=== PATIENT | female | born 1945 | race Caucasian/White ===

== ENCOUNTER → 2017-10-21 01:08 | Outpatient (CLI) | payer MEDICARE, BC, SELFPAY ==
--- NOTE | 2017-10-21 09:50 | DI.REPORT_ITS ---
SYMPTOM/DIAGNOSIS: DYSPNEA ON EXERTION, R06.09 PA AND LATERAL CHEST: The lungs are well expanded and free of infiltrate. There is no pleural effusion. The cardiovascular structures are intact. 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 SUMMARY: Negative chest xray.
== END ==
PROVIDERS: PCP Nurse Practitioner; Visit Provider Nurse Practitioner
DX: R06.09 Other forms of dyspnea (principal)
CPT/HCPCS: 71046

== ENCOUNTER 2018-09-20 00:25 | Outpatient (CLI) | payer MEDICARE, BC, SELFPAY ==
--- NOTE | 2018-09-20 15:00 | DI.RAD_ITS ---
SYMPTOMS/DIAGNOSIS: SCREENING, Z12.31 MAMMOGRAM: Mammograms were interpreted according to the usual protocol including computer analysis with CAD system, tomosynthesis and C view imaging. The breasts are heterogeneously dense. No dominant mass or clumped microcalcification is seen. There is a stable area of nodularity in the medial inferior portion of the left breast seen on multiple previous examinations including April 2017. No significant change seen in comparison with prior studies. CONCLUSION: No specific evidence of malignancy at this time. Routine screening examinations are suggested at yearly intervals due to the family history of breast carcinoma. Category 1, breast density category C. MQSA ASSESSMENT OF FINDINGS: Negative. Category 1. Patient will receive a letter notifying them of these results. Bi-RADS category C. The breasts are heterogeneously dense, which may obscure small masses.
== END 2018-09-20 00:45 ==
PROVIDERS: PCP Nurse Practitioner; Visit Provider Nurse Practitioner Family
DX: Z12.31 Encounter for screening mammogram for malignant neoplasm of breast (principal); Z80.3 Family history of malignant neoplasm of breast
CPT/HCPCS: 77063; 77067

== ENCOUNTER 2019-06-01 07:41 | Outpatient (CLI) | payer MEDICARE, BC, SELFPAY ==
[2019-06-01 08:20] LABS: HCT 42.2 % (36.0-46.0); HGB 13.9 g/dL (12.0-15.5); Mean Corp. HGB Concentration 32.9 g/dL (32.0-36.0); Mean Corpuscular Hemoglobin 29.8 pg (27.0-33.0); Mean Corpuscular Volume 90.6 fL (80-95); Mean Platelet Volume 11.2 fL (8.0-11.0); Platelet Count 285 x1000/uL (130-400); RBC 4.66 m/cumm (4.00-5.20); RBC Distribution Width 13.7 % (11.7-14.6); White Blood Cell Count 7.13 k/cumm (4.4-10.8)
[2019-06-01 09:26] LABS: ALT 27 U/L (14-59); AST 17 U/L (15-37); Albumin 3.8 g/dL (3.4-5.0); Alkaline Phosphatase 77 U/L (46-116); Anion Gap 6.3 mmol/L (3-11); BUN 22 mg/dL (7-18); Bilirubin, Total 0.6 mg/dL (0.2-1.0); CO2 29.7 mmol/L (21.0-32.0); CREATININE 0.87 mg/dL (0.55-1.02); Calcium 8.9 mg/dL (8.5-10.1); Calculated LDL 139 mg/dL (<100); Chloride 106 mmol/L (98-107); Cholesterol 240 mg/dL (<200); Glucose 101 mg/dL (74-106); HDL Cholesterol 91 mg/dL (40-60); Potassium 4.5 mmol/L (3.5-5.1); Sodium 142 mmol/L (136-145); Total Protein 6.6 g/dL (6.4-8.2); Triglyceride 53 mg/dL (<150)
[2019-06-01 10:29] LABS: ESR 8 mm/hr (0-30)
[2019-06-01 15:56] LABS: Rheumatoid Factor <8.6 IU/mL (<12.0)
== END 2019-06-01 08:01 ==
PROVIDERS: PCP Nurse Practitioner; Visit Provider Nurse Practitioner
DX: E78.00 Pure hypercholesterolemia, unspecified (principal); M79.641 Pain in right hand; M79.642 Pain in left hand
CPT/HCPCS: 36415; 80053; 80061; 85027; 85652; 86431

== ENCOUNTER 2019-11-30 01:56 | Outpatient (CLI) | payer MEDICARE, BC, SELFPAY ==
--- NOTE | 2019-11-30 15:00 | DI.MAMMO_ITS ---
EXAM: MG MAMMO SCREENING CLINICAL HISTORY: screening TECHNIQUE: Mammograms were interpreted according to the usual protocol including computer analysis w [employer] CAD system, tomosynthesis and C-view imaging. COMPARISON: FINDINGS: The breasts are heterogeneously dense. No dominant mass or clumped microcalcification is identified in either breast. There is stable intramammary well circumscribed nodule seen in the central medial portion of the left breast measuring about 11 millimeters in greatest diameter. A 10 millimeter in g reatest diameter nodule is projected in the central lateral portion of the left breast on CC view and has increased in size in comparison with previous studies including September 2018. No other significant change seen in comparison with previous examinations. Because of the interval i ncrease in size of the more laterally located left breast nodule, additional evaluation with spot com pression views and breast ultrasound is recommended. IMPRESSION: Additional mammographic views of the left breast and left breast ultrasound requested as described ab mireles. BI-RADS Cat 0 - Assessment Incomplete: Need additional imaging evaluation Breast Density - Category C - Heterogeneously dense
== END 2019-11-30 02:16 ==
PROVIDERS: PCP Internal Medicine; Visit Provider Nurse Practitioner Family
DX: Z12.31 Encounter for screening mammogram for malignant neoplasm of breast (principal); N63.20 Unspecified lump in the left breast, unspecified quadrant
CPT/HCPCS: 77063; 77067

== ENCOUNTER 2019-12-07 01:14 | Outpatient (CLI) | payer MEDICARE, BC, SELFPAY ==
--- NOTE | 2019-12-07 | DI.US_ITS ---
EXAM: MG MAMMO SCREEN CALL BACK UNI and U/S breast LT limited CLINICAL HISTORY: F/U MAMMO, CENTRAL LAT LT BREAST NODULE INCREASED. TECHNIQUE: Craniocaudal and mediolateral oblique Full Field Digital Mammography views of the left br east with Computer Aided Diagnosis followed by Tomosynthesis and left breast ultrasound. COMPARISON: Priors available for comparison. FINDINGS: Mammography/Tomosynthesis: Masses/Architectural Distortion: A small persistent ovoid density is seen in the outer left breast on the additional views. No associated suspicious microcalcifications are noted. Microcalcifictions: No suspicious pleomorphic-type are seen. Skin Thickening/Nipple Retraction: None. Left breast US: Echotexture: Normal appearance of the glandular tissue. Shadowing: No suspicious foci. Cyst: None. Solid lesions: 2 well-circumscribed ovoid hypoechoic avascular nodules are seen at the 3 o'clock posi tion of the left breast 2 cm from the nipple. No posterior acoustic enhancement or shadowing is seen . The larger measures 0.6 cm. Ductal dilation: None. IMPRESSION: 1. No definite evidence for malignancy at this time. 2. A six-month follow-up left mammogram and left breast ultrasound are requested for re-evaluation. 3. The findings were discussed with the patient on the date of the examination. BI-RADS Category 3 - 6 month - Probably Benign Finding: Recommend follow-up mammography in 6 months Breast Density - Category C - Heterogeneously dense The mammogram demonstrates the patient's breast tissue is dense. Dense breast tissue is very common a nd is not abnormal but dense breast tissue can make it harder to find cancer on a mammogram. Also, de nse breast tissue may increase their breast cancer risk. This information about the result of the [facility] mogram report was provided to the patient to raise their awareness. Use this report when you speak wi th the patient about their risks for breast cancer, which includes their family history. At that time , you may recommend for more screening tests (Ultrasound or MRI) as they might be useful based on the ir risk. A negative radiographic report should not delay biopsy if a dominant or clinically suspicious mass is present. Up to ten percent of cancers are not identified on mammography. A negative report may reinforce clinical impression. Adenosis and dense breasts may obscure an underlying neoplasm. False positive reports average 6 to 10%. Patient will receive a letter notifying them of these results.
== END 2019-12-07 01:34 ==
PROVIDERS: PCP Internal Medicine; Visit Provider Nurse Practitioner Family
DX: R92.8 Other abnormal and inconclusive findings on diagnostic imaging of breast (principal); R92.2 Inconclusive mammogram
CPT/HCPCS: 76642; 77063; 77067

== ENCOUNTER 2020-06-11 02:42 | Outpatient (CLI) | payer MEDICARE, BC, SELFPAY ==
--- NOTE | 2020-06-11 07:45 | DI.MAMMO_ITS ---
EXAM: MG MAMMO DIAGNOSTIC UNI CLINICAL HISTORY: 6 mo f/u left breast mammogram,R92.8,INCONCLUSIVE MAMMO. TECHNIQUE: Unilateral left CC and MLO images were obtained with 3D Tomosynthesistechnique and utiliz ing computer aided detection (CAD). COMPARISON: Prior mammograms dating back to 2010, the most recent being November 2019. Ultrasound November 2019 was also reviewed. 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 The asymmetric de nsity posterior in left breast is unchanged from recent studies dating back to April 2017. No malignant-appearing microcalcification groups in the left breast. We performed complete left breast ultrasound following this left breast mammogram today. Please see that separate report IMPRESSION: Please see left breast ultrasound report forced findings and recommendations. Appropriate follow-up is repeat left breast ultrasound in 3 months, this mostly to revisit the findin g at 7 o'clock position of the left breast seen on ultrasound today.. BI-RADS Category 3 - 3 month - Probably Benign Finding: Recommend follow-up ultrasound in 3 months Breast Density - Category C - Heterogeneously dense Breast density Category C or D implies that the patient has dense breast tissue. Dense breast tissue can make it harder to find cancer on a mammogram. Dense breast tissue is also associated with an incr eased risk of breast cancer. This information about the result of the mammogram report was provided to the patient to raise their awareness. Use this report when you speak with the patient about their risks for breast cancer, which includes their family history. At that time, you may recommend additional screening tests (Ultrasoun d or MRI) as these tests may add significant information. A negative radiographic report should not delay biopsy if a dominant or clinically suspicious mass is present. Up to ten percent of cancers are not identified on mammography. A negative report may reinforce clinical impression. Adenosis and dense breasts may obscure an underlying neoplasm. False positive reports average 6 to 10%. Patient will receive a letter notifying them of these results.
--- NOTE | 2020-06-11 07:48 | DI.US_ITS ---
EXAM: US BREAST LT COMPLETE CLINICAL HISTORY: 6mo f/u left breast US,R92.8,INCONCLUSIVE MAMMO. TECHNIQUE: Complete ultrasound examination of the left breast was performed including all 4 quadrant s as well as the retroareolar region and left axilla. COMPARISON: Today's diagnostic mammogram as well as prior mammograms reviewed. Prior ultrasound exa mination performed 12/07/2019 was reviewed. FINDINGS: At the 12 o'clock position there is a 3 millimeter benign microcyst. At the 3 o'clock position there is a conglomeration of microcysts measuring 5 x 6 millimeters, simila r to previous. At the 7 o'clock position there is a 4.5 x 2.5 millimeter wider than taller nodule which has appearan ce of a probable hemorrhagic microcyst. At the 8 o'clock position there is a slightly lobulated nodule measuring 10 x 6 millimeters which cor responds to the nodule on the mammogram and is most probably a fibroadenoma. The patient formed see that this has been previously biopsied. It is unchanged over numerous prior mammograms. The contain s a solitary tiny hyperechoic focus consistent with a small microcalcifications seen therein on the m ammogram. IMPRESSION: There are 4 ultrasound findings in the left breast as described above, none of which appear to corres pond to the finding on the mammogram. I note that the finding on the mammogram appears unchanged fro April 2017 (3 years), and is therefore most probably benign. The 7 o'clock position finding on today's ultrasound is probably hemorrhagic microcyst but should und ergo repeat ultrasound examination in a few months time.. Recommend repeat left breast ultrasound in 3 months. Indeed at that time I recommend bilateral breast ultrasound. BI-RADS Category 3 - 3 month - Probably Benign Finding: Recommend follow-up ultrasound in 3 months Breast Density - Category C - Heterogeneously dense Breast density Category C or D implies that the patient has dense breast tissue. Dense breast tissue can make it harder to find cancer on a mammogram. Dense breast tissue is also associated with an incr eased risk of breast cancer. This information about the result of the mammogram report was provided to the patient to raise their awareness. Use this report when you speak with the patient about their risks for breast cancer, which includes their family history. At that time, you may recommend additional screening tests (Ultrasoun d or MRI) as these tests may add significant information. A negative radiographic report should not delay biopsy if a dominant or clinically suspicious mass is present. Up to ten percent of cancers are not identified on mammography. A negative report may reinforce clinical impression. Adenosis and dense breasts may obscure an underlying neoplasm. False positive reports average 6 to 10%. Patient will receive a letter notifying them of these results.
== END 2020-06-11 03:02 ==
PROVIDERS: PCP Internal Medicine; Visit Provider Nurse Practitioner Family
DX: Z12.31 Encounter for screening mammogram for malignant neoplasm of breast (principal); R92.8 Other abnormal and inconclusive findings on diagnostic imaging of breast; D24.2 Benign neoplasm of left breast; N60.12 Diffuse cystic mastopathy of left breast
CPT/HCPCS: 76642; 77061; 77065; G0279

== ENCOUNTER 2020-09-11 02:07 | Outpatient (CLI) | payer MEDICARE, BC, SELFPAY ==
--- NOTE | 2020-09-11 07:25 | DI.US_ITS ---
Exam(s) US BREAST LT COMPLETE US BREAST RT COMPLETE EXAM: US BREAST RT COMPLETE CLINICAL HISTORY: f/u to abn imaging, R92.8 TECHNIQUE: Ultrasound performed using standard protocol. COMPARISON: US US BREAST LT COMPLETE from 06/11/2020 US US BREAST LT COMPLETE from 09/11/2020 US US BREAST LT COMPLETE from 09/11/2020 FINDINGS: Right and left breast ultrasounds are interpreted in conjunction. Screening right breast ultrasound was performed for dense breast tissue on the right. No focal mass or cyst identified in the right br east. On the left, a previously noted 10 millimeter in diameter horizontally oriented well-circumscribed ho mogeneous mass is again seen and is unchanged. This is likely to represent a fibroadenoma. Normal appearing left axillary lymph node is noted. Small cyst noted in 3 o'clock position measuring 3 millimeters in diameter. Small group of microcyst s measuring 3 millimeters in diameter 12 o'clock position. These are unchanged.. IMPRESSION: Stable 9-10 millimeter in diameter left breast lesion in the 7 o'clock position is likely a fibroaden starla. An additional follow-up left breast ultrasound is recommended in 6 months. Unremarkable right breast ultrasound. BI-RADS Cat 3 - 6 month - Probably Benign Finding: Recommend follow-up imaging in 6 months DATA REPOSITORY:
== END 2020-09-11 02:27 ==
PROVIDERS: PCP Internal Medicine; Visit Provider Nurse Practitioner Family
DX: N64.9 Disorder of breast, unspecified (principal); R92.8 Other abnormal and inconclusive findings on diagnostic imaging of breast
CPT/HCPCS: 76642

== ENCOUNTER 2020-11-13 14:38 | Outpatient (CLI) | payer MEDICARE, BC, SELFPAY ==
--- NOTE | 2020-11-13 14:30 | RT.EKG_ITS ---
APPROVED REPORT Exam: Resting ECG Reason for Exam: premature beats Patient Location: O HR:51 bpm ECG Measurements Heart Rate 51 AXIS AK 167 P 46 QRSd 81 QRS 24 QT 433 T 19 QTc 401 Conclusion Sinus bradycardia...rate< 60
== END 2020-11-13 14:39 | disposition home or self-care (01) ==
LOC: DI.KIM 14:40
PROVIDERS: PCP Internal Medicine; Visit Provider Internal Medicine
DX: I49.49 Other premature depolarization (principal)
CPT/HCPCS: 93010

== ENCOUNTER 2021-03-13 00:03 | Outpatient (CLI) | payer MEDICARE, BC, SELFPAY ==
--- NOTE | 2021-03-13 07:30 | DI.US_ITS ---
Exam(s) US BREAST LT COMPLETE EXAM: US BREAST LT COMPLETE CLINICAL HISTORY: 6 mo f/u,r92.8. TECHNIQUE: Complete ultrasound of the left breast was performed including all 4 quadrants, the retro areolar region, and the ipsilateral axilla. COMPARISON: Prior mammograms were reviewed. Prior ultrasound examinations were also reviewed, most r ecent ultrasound being August 2020 FINDINGS: At 12 o'clock position there is there is an unchanged 3 millimeter benign microcyst. At the 3 o'clock position there is a benign appearing 5 x 3 millimeter microcyst. At the 7 o'clock position there is an unchanged lobulated solid nodule which has appearance of a fibr oadenoma, measuring approximately 9 x 7 millimeters, unchanged. Exhibits neutral through transmissio n. There are no new focal ultrasound findings in all 4 quadrants nor in the immediate retroareolar regio n. No significant ultrasound findings in the axilla. No significant axillary adenopathy. IMPRESSION: Stable ultrasound findings in left breast. Appropriate follow-up is to repeat the ultrasound examination at the time for next yearly mammogram, with earlier imaging if a self detected breast change is noted.. BI-RADS Category 2 - Benign Findings Breast Density - Category C - Heterogeneously dense Breast density Category C or D implies that the patient has dense breast tissue. Dense breast tissue can make it harder to find cancer on a mammogram. Dense breast tissue is also associated with an incr eased risk of breast cancer. This information about the result of the mammogram report was provided to the patient to raise their awareness. Use this report when you speak with the patient about their risks for breast cancer, which includes their family history. At that time, you may recommend additional screening tests (Ultrasoun d or MRI) as these tests may add significant information. A negative radiographic report should not delay biopsy if a dominant or clinically suspicious mass is present. Up to ten percent of cancers are not identified on mammography. A negative report may reinforce clinical impression. Adenosis and dense breasts may obscure an underlying neoplasm. False positive reports average 6 to 10%. Patient will receive a letter notifying them of these results.
== END 2021-03-13 00:23 ==
PROVIDERS: PCP Internal Medicine; Visit Provider Nurse Practitioner Family
DX: R92.8 Other abnormal and inconclusive findings on diagnostic imaging of breast (principal); N60.02 Solitary cyst of left breast; N63.24 Unspecified lump in the left breast, lower inner quadrant
CPT/HCPCS: 76642

== ENCOUNTER 2021-05-29 01:56 | Outpatient (CLI) | payer MEDICARE, BC, SELFPAY ==
--- NOTE | 2021-05-29 06:00 | DI.RAD_ITS ---
Exam(s) RF BARIUM SWALLOW EXAM: RF BARIUM SWALLOW CLINICAL HISTORY: esophageal pain,SPASM,K22.4 TECHNIQUE: 2D and realtime digital imaging was performed. CONTRAST MATERIAL: Oral barium Oral water soluble contrast was administered. COMPARISON: CR CHEST 2 VIEWS PA,LAT from 10/21/2017 FINDINGS: ESOPHAGRAM: This study was performed both standing and recumbent, using air contrast technique. There was trace aspiration evident on this study. No obvious hypertense upper esophageal sphincter and no evidence of Zenker's diverticulum. There are no strictures nor extrinsic compression evident in the esophagus. No fixed lesions. No hiatal elise ia. GE junction appears unremarkable. There are no tertiary waves. No prominent reflux demonstrate d. No evidence of achalasia. IMPRESSION: No structural lesions evident in the esophagus and GE junction. There was trace aspiration evident. Recommend follow-up modified barium swallow performed in our dep artment in conjunction with the speech pathologist. RADIATION DOSE DELIVERED: Ka,r= mGy
== END 2021-05-29 02:16 ==
PROVIDERS: PCP Internal Medicine; Visit Provider Internal Medicine
DX: K22.4 Dyskinesia of esophagus (principal)
CPT/HCPCS: 74221

== ENCOUNTER → 2021-09-18 02:20 | Outpatient (CLI) | payer MEDICARE, BC, SELFPAY ==
--- NOTE | 2021-09-18 14:00 | DI.MAMMO_ITS ---
Exam(s) MAMMO SCREENING EXAM: MAMMO SCREENING CLINICAL HISTORY: screening TECHNIQUE: Mammograms were interpreted according to the usual protocol including computer analysis w [employer] CAD system, tomosynthesis and C-view imaging. COMPARISON: 2012 through 2020 FINDINGS: The breasts are composed of heterogeneously dense fibroglandular densities, Breast Density category C . No suspicious masses or suspicious microcalcifications are seen. Stable nodule inferomedial left jeremy ast. No skin thickening or abnormal axillary lymph nodes are seen. There has been no significant change from prior exams. IMPRESSION: BI-RADS Cat 2 - Benign Findings Yearly screening mammography is recommended. Breast Density Category C, heterogeneously Dense. The mammogram demonstrates the patient's breast tissue is dense. Dense breast tissue is very common a nd is not abnormal but dense breast tissue can make it harder to find cancer on a mammogram. Also, de nse breast tissue may increase breast cancer risk. This information about the result of the mammogram report was provided to the patient to raise their awareness. Use this report when you speak with the patient about their risks for breast cancer, which includes their family history. At that time, you may recommend additional screening tests (Ultrasound or MRI) as they might be useful based on their r isk. A negative radiographic report should not delay biopsy if a dominant or clinically suspicious mass is present. Up to ten percent of cancers are not identified on mammography. A negative report may reinforce clinical impression. Adenosis and dense breasts may obscure an underlying neoplasm. False positive reports average 6 to 10%.
== END ==
PROVIDERS: PCP Internal Medicine; Visit Provider Nurse Practitioner Family
DX: Z12.31 Encounter for screening mammogram for malignant neoplasm of breast (principal)
CPT/HCPCS: 77063; 77067

== ENCOUNTER 2022-12-11 13:33 | Outpatient (CLI) | payer MEDICARE, BC, SELFPAY ==
--- NOTE | 2022-12-11 13:30 | RT.EKG_ITS ---
APPROVED REPORT Exam: Resting ECG Reason for Exam: SOB Patient Location: O HR:67 bpm ECG Measurements Heart Rate 67 AXIS FL 147 P 27 QRSd 96 QRS 11 QT 399 T 27 QTc 422 Conclusion Sinus rhythm...normal P axis, V-rate 50- 99 Atrial premature complex...SV complex w/ short R-R interval Otherwise normal ECG
== END 2022-12-11 13:34 | disposition home or self-care (01) ==
LOC: DI.KIM 13:34
PROVIDERS: PCP Nurse Practitioner Adult Health; Visit Provider Nurse Practitioner Adult Health
DX: R06.02 Shortness of breath (principal)
CPT/HCPCS: 93010

== ENCOUNTER 2023-01-21 01:47 | Outpatient (CLI) | payer MEDICARE, BC, SELFPAY ==
[2023-01-21 10:15] LABS: Anion Gap 7.9 mmol/L (3-11); BUN 23 mg/dL (7-18); CO2 28.1 mmol/L (21.0-32.0); CREATININE 0.8 mg/dL (0.55-1.02); Calcium 9.4 mg/dL (8.5-10.1); Calculated LDL 151 mg/dL (<100); Chloride 104 mmol/L (98-107); Cholesterol 258 mg/dL (<200); Estimated GFR 76.31 (mL/min/1.73m2); Glucose 111 mg/dL (74-106); HDL Cholesterol 94 mg/dL (40-60); Potassium 3.9 mmol/L (3.5-5.1); Sodium 140 mmol/L (136-145); TSH (W/Ref FT4) 1.74 uIU/mL (0.36-3.74); Triglyceride 69 mg/dL (<150); Vitamin B12 436 pg/mL (193-986)
== END 2023-01-21 01:48 | disposition home or self-care (01) ==
LOC: LBO 01:48
PROVIDERS: Absent Provider Nurse Practitioner Adult Health; PCP Nurse Practitioner Adult Health; Visit Provider Nurse Practitioner Adult Health
DX: R06.09 Other forms of dyspnea (principal); R53.83 Other fatigue; Z13.29 Encounter for screening for other suspected endocrine disorder; Z13.220 Encounter for screening for lipoid disorders
CPT/HCPCS: 36415; 80048; 80061; 82607; 84443

== ENCOUNTER → 2023-02-25 03:49 | Outpatient (CLI) | payer MEDICARE, BC, SELFPAY ==
--- NOTE | 2023-02-25 08:05 | DI.MAMMO_ITS ---
Exam(s) MAMMO SCREENING EXAM: MAMMO SCREENING CLINICAL HISTORY: screening,z12.39 TECHNIQUE: Mammograms were interpreted according to the usual protocol including computer analysis w [employer] CAD system, tomosynthesis and C-view imaging. COMPARISON: 2014 through 2021 FINDINGS: The breasts are composed of heterogeneously dense fibroglandular densities, Breast Density category C . No suspicious masses or suspicious microcalcifications are seen. Stable area of nodularity lower inn er quadrant breast. No skin thickening or abnormal axillary lymph nodes are seen. There has been no significant change from prior exams. IMPRESSION: BI-RADS Category 2 - Negative Mammogram with benign findings. Yearly screening mammography is recom mended. Breast Density Category C, heterogeneously Dense. The mammogram demonstrates the patient's breast tissue is dense. Dense breast tissue is very common a nd is not abnormal but dense breast tissue can make it harder to find cancer on a mammogram. Also, de nse breast tissue may increase breast cancer risk. This information about the result of the mammogram report was provided to the patient to raise their awareness. Use this report when you speak with the patient about their risks for breast cancer, which includes their family history. At that time, you may recommend additional screening tests (Ultrasound or MRI) as they might be useful based on their r isk. A negative radiographic report should not delay biopsy if a dominant or clinically suspicious mass is present. Up to ten percent of cancers are not identified on mammography. A negative report may reinforce clinical impression. Adenosis and dense breasts may obscure an underlying neoplasm. False positive reports average 6 to 10%.
== END ==
PROVIDERS: PCP Nurse Practitioner Adult Health; Visit Provider Nurse Practitioner Adult Health
DX: Z12.31 Encounter for screening mammogram for malignant neoplasm of breast (principal)
CPT/HCPCS: 77063; 77067

== ENCOUNTER → 2024-02-17 10:28 | Outpatient (BNVA) | payer MEDICARE, BC, SELFPAY | PROVIDERS: PCP Nurse Practitioner Adult Health; Referring Provider Nurse Practitioner Adult Health; Visit Provider Nurse Practitioner Adult Health | DX: G56.01 Carpal tunnel syndrome, right upper limb (principal) | CPT/HCPCS: 95908; 99203 ==

== ENCOUNTER 2024-03-02 03:32 | Outpatient (CLI) | payer MEDICARE, BC, SELFPAY ==
--- NOTE | 2024-03-02 06:45 | DI.MAMMO_ITS ---
Exam(s) MAMMO SCREENING EXAM: MAMMO SCREENING CLINICAL HISTORY: screening,z12.39 TECHNIQUE: Bilateral full field digital CC and MLO mammographic images were obtained with 3D tomosyn thesis and utilizing computer aided detection (CAD). COMPARISON: Available for comparison. FINDINGS: Masses/Architectural Distortion: There is a stable area of nodularity in the lower inner quadrant of the left breast. No new nodules are seen. No areas of architectural distortion are present. Microcalcifications: No suspicious pleomorphic-type are seen. Skin Thickening/Nipple Retraction: None. IMPRESSION: 1. No significant interval change with no specific features of malignancy noted. 2. Unless there is more urgent need, screening mammography is recommended, as per [employer] guidelines. BI-RADS Category 2 - Benign Findings Breast Density - Category C - Heterogeneously dense Breast density category C or D implies that the patient has dense breast tissue. Dense breast tissue is very common and is not abnormal but dense breast tissue can make it harder to find cancer on a ma mmogram. Also, dense breast tissue may increase their breast cancer risk. This information about the result of the mammogram report was provided to the patient to raise their awareness. Use this report when you speak with the patient about their risks for breast cancer, which includes their family hist ory. At that time, you may recommend for more screening tests (Ultrasound or MRI) as they might be us eful based on their risk. A negative radiographic report should not delay biopsy if a dominant or clinically suspicious mass is present. Up to ten percent of cancers are not identified on mammography. A negative report may reinforce clinical impression. Adenosis and dense breasts may obscure an underlying neoplasm. False positive reports average 6 to 10%. Patient will receive a letter notifying them of these results.
== END 2024-03-02 03:52 ==
LOC: DI 03:32
PROVIDERS: PCP Nurse Practitioner Adult Health; Visit Provider Nurse Practitioner Adult Health
DX: Z12.31 Encounter for screening mammogram for malignant neoplasm of breast (principal); M25.531 Pain in right wrist; R20.2 Paresthesia of skin; R92.333 Mammographic heterogeneous density, bilateral breasts
CPT/HCPCS: 77063; 77067

== ENCOUNTER → 2024-04-11 13:59 | Outpatient (BNVA) | payer MEDICARE, BC, SELFPAY | PROVIDERS: PCP Nurse Practitioner Adult Health; Referring Provider Nurse Practitioner Adult Health; Visit Provider Student in an Organized Health Care Education/Training Program | DX: G56.01 Carpal tunnel syndrome, right upper limb (principal) | CPT/HCPCS: 99213 ==

== ENCOUNTER 2024-04-26 06:12 | Day surgery (SDC) | payer MEDICARE, BC, SELFPAY ==
[2024-04-26 06:35] VITALS: BP 140/79; PULSE 68; RESP 14; TEMP 37; O2SAT 99
[2024-04-26] MEDS: Lactated Ringers 1,000 ML 80 ML IV (06:50)
--- NOTE | 2024-04-26 07:17 | PDOC.DSDIS_ITS ---
Date of service: 04/26/24 Discharge Plan Disposition Patient Disposition: Home Condition: Good Discharge Details Reason For Visit: Right carpal tunnel syndrome Attending Provider: Toribio Rodriguez Primary Care Provider: Kayla Encarnacion Home Meds and New Rx's Prescriptions: Continued desoximetasone [Topicort] 0.05 % cream 1 applic topical DAILY PRN (Reason: skin irritation) Qty: 15 1RF triamcinolone acetonide 0.1 % cream 1 applic topical BID PRN (Reason: skin irritation) Qty: 15 1RF estradiol [Estrace] 0.01 % (0.1 mg/gram) cream 42.5 g VG twice weekly PRN Rx Instructions: Use 1 GM in Vagina twice weekly Discharge Instructions Stand Alone Forms: Anesthesia Discharge Inst., Michael Mario Tunnel Release, [place] ([facility]) Referrals: Toribio Rodriguez MD [ [facility] STAFF PHYSICIAN] - 05/06/24 10:45 am Activity:: Elevate Remove Dressings/Wound Care:: 48 hours Shower/Bathe:: 48 hours Diet:: As Tolerated Discharge Orders Discharge Orders: Discharge Order (Routine); Ordered 04/26/24 Ordered By: Maki Black
--- NOTE | 2024-04-26 07:24 | HPE_ITS ---
Assessment and Plan Assessment and plan (1) Right carpal tunnel syndrome: Status: Suspected Assessment and plan: Precious is a 78-year-old female with known carpal tunnel syndrome about the right side. She has had persistent and progressive symptoms. At this point she feels she has failed conservative treatments and would like to proceed with operative intervention. I discussed the technical details of carpal tunnel release and that I perform an endoscopic release, but would make a larger, open, incision if necessary for visualization. I discussed the risks of the procedure to include, but not limited to, bleeding, infection, palmar pain, stiffness, damage to nerves, damage to vessels, damage to tendons, weakness, recurrence, and incomplete release. Given these risks, Precious desires to proceed. History of Present Illness History of Present Illness Chief Complaint: Right Carpal Tunnel Syndrome Narrative: Precious is a 78-year-old female who has known carpal tunnel syndrome about the right side. I seen her previously in the office for these complaints. She was uncertain about when she wanted to proceed but then decided she would like to go ahead and take care of her carpal tunnel syndrome which has been present for quite some time. She denies any new symptoms. She denies any chest pain shor tness of breath. Review of Systems All systems reviewed & are unremarkable except as noted in HPI and below PFSH All Active Problems IFG (impaired fasting glucose) (Acute ~01/2023) ?Fasting, 111 Osteopenia (Chronic ~2016) Wears hearing aid in both ears (Acute) Arthritis of both hands (Chronic) Acquired absence of both cervix and uterus (Acute 04/28/17) JENNIFER-BSO for fibroids at age 52 at [facility] Family history of colon cancer (Chronic 04/21/17) Brother in late 40s Medical History Difficult airway for intubation Per pt. states when she had an ovarian cystectomy they had trouble intubating her. Has since had an LAVH and did okay Exertional dyspnea (~11/2022) Aspiration into airway TRACE - per [facility] Ba Swallow, [facility], 05/29/21 Bradycardia Esophageal spasm Seborrheic keratosis Surgical History H/O colonoscopy (11/13/22) [facility] Merchant Oophrectomy, Both (~1997) [facility] Dr Ray Abdominal hysterectomy age 52 [facility] Family History Father Cancer lunf Brother Cancer colon Brother Parkinsons disease Colon cancer lived into his 80's Mother , 99yo Breast cancer Dx'ed 98yo Social History Smoking/Tobacco Use Status: Never Smoking risk assessment performed?: Yes Alcohol Intake: current Alcohol Intake frequency: a few times a week Alcohol type: wine Drug use: Never Substance use type: does not use Adopted: No Caregiver/Support person: No Foster care: No Household members: none Housing: house Number of Children: 3 number of grandchildren: 4 Communication Needs: Hard of Hearing and Corrective Lenses Education Level: college Do you need help understanding health information?: Never current occupation: Retired RN Pets and animals: Yes (1 Cat, 2 Horses) Pets and animals: cat(s) and horse(s) Sexually active: No Do you think of yourself as: straight/heterosexual Current gender identity: female What is your relationship status?: How often do you talk on the phone with friends or family?: three or more times per week How often do you get together with friends or relatives?: three or more times per week How often do you attend taoism or uatsdin services?: decline to answer Do you belong to any clubs or organized social groups?: no Panel score (0-1 are the most socially isolated patients): 1 What type of physical activity do you participate in: walking, bicycling and regular exercise Duration: > 90 minutes/day Frequency: 5-6 times per week Angelica/Adventist: Pentecostalism Seatbelt use: always Helmet use: Yes Helmet use: always Drive intox or ride w/intox lift driver: No Water heater temp set <120 deg: Yes Working smoke detector in home: Yes Fire extinguisher in home: Yes Carbon monox detector in home: No Do you feel safe at home: Yes Do you feel safe in your relationship?: Yes Meds Allergies and Home Medications Allergies Allergy/AdvReac Type Severity Reaction Status Date / Time No Known Allergies Allergy Verified 04/26/24 06:34 Home Medications ?Medication ?Instructions ?Recorded ?Confirmed ?Type estradiol 0.01% (0.1 mg/gram) 42.5 g vaginal twice weekly PRN 12/11/21 04/25/24 History vaginal cream (Estrace) triamcinolone acetonide 0.1 % 1 applic topical BID PRN skin 12/02/23 04/25/24 Rx topical cream irritation #15 grams desoximetasone 0.05 % topical 1 applic topical DAILY PRN skin 01/20/24 04/25/24 Rx cream (Topicort) irritation #15 grams Exam Const General: cooperative, healthy appearing, comfortable and no acute distress Extrem Other: Brief evaluation of the right hand shows no skin abnormalities. No signs of infection. There is some mild prominence to the volar bursa of the forearm but without mass. Decree sensation in the median nerve distribution. Results Last Vital Signs Temp 37 C 04/26/24 06:35 Pulse 68 04/26/24 06:35 Resp 14 04/26/24 06:35 BP 140/79 04/26/24 06:35 Pulse Ox 99 04/26/24 06:35
[2024-04-26] MEDS: ceFAZolin 2 GM/50 ML BAG IVPB (07:33)
[2024-04-26] MEDS: Sodium Bicarbonate 50 MEQ/50 ML VIAL (07:35)
[2024-04-26] MEDS: Lidocaine 1% Pres-Free W/EPI 1/200,000 10 ML VIAL (07:35)
--- NOTE | 2024-04-26 07:49 | W.PM.OP ---
Operative Note Operative Note PRE-OP DIAGNOSIS: Right Carpal Tunnel Syndrome POST-OP DIAGNOSIS: same PROCEDURE: Right Endoscopic Carpal Tunnel Release SURGEON: Toribio Rodriguez ANESTHESIA TYPE: Local By Surgeon Refer to Anesthesia Record ESTIMATED BLOOD LOSS: 0 PATHOLOGY: none sent TOURNIQUET TIME: 6 COMPLICATIONS: None Patient was transported to: same day Patient's condition: stable Indications: I have seen Precious in clinic for symptoms of carpal tunnel syndrome. The numbness, tingling, and pain limited function. Clinical exam findings confirmed the diagnosis of carpal tunnel syndrome. Nonoperative measures such as bracing, time, activity modifications had been tried but disability and pain persisted. I discussed carpal tunnel release with the patient. I reviewed the risks of the procedure to include, but not limited to, bleeding, infection, pain, stiffness, incomplete release, damage to nerves or vessels, persistent numbness, recurrence. Despite these risks, the patient elected to proceed. Findings: There was tightened carpal tunnel. There was significant synovitis as well. This was dilated and released successfully with the endoscopic with increased space within the tunnel. The antebrachial fascia was released proximally freeing the median nerve at the wrist. Procedure Description: Precious was greeted in the preoperative holding area where the correct side was identified and marked. The consent was reviewed with the patient and signed. The history and physical was updated. All questions were answered. She was taken back to the operating room. The patient was placed into the supine position on the operating room table with the right arm on an arm board. A nonsterile tourniquet was placed high onto the arm. All bony prominences were well padded. Prophylactic antibiotics in the form of Cefazolin were administered. The right arm was then prepped with Chloraprep and draped in a standard fashion with stockinette and extremity drape. A timeout to confirm correct identity, side and site, procedure, allergies, anesthesia, and medical concerns was performed. The surgical site was marked in the volar wrist creases in line with the radial border of the fourth ray. This area was anesthetized with approximately 6cc of 1% Lidocaine. The limb was then exsanguinated with an Esmarch. The skin was incised with a 15 blade, approximately 1cm. The skin only was cut and the deeper tissue was dissected bluntly with a tenotomy scissor, avoiding passing nerve and venous structures. The fascia was penetrated and opened bluntly. A two-prong skin hook was placed under this proximal fascial edge. There was a significant amount of synovitis seen in this region which pushed up from the fasciotomy. This was able to be bluntly moved, and then a series of hamate finders were used to identify and dilate the carpal tunnel. Synovial elevator was used to free synovial attachments to the underside of the transverse carpal ligament. My thumb was kept in the palm to sourav the distal extent of the carpal tunnel and correctly position the hand. The Microaire endoscope was inserted without difficulty and without resistance. Excellent visualization showed horizontally running fibers of the transverse carpal ligament (TCL). The distal extent of the TCL was visualized and the end of the scope palpated with the thumb. The blade was elevated and withdrawn from distal to proximal. The TCL was split into two flaps. The endoscope was reinserted to confirm complete release and any remnant ligament was incised. The scope was withdrawn and the proximal aspect of the carpal tunnel was grossly inspected and appeared release with the median nerve visible. The antebrachial fascia at the level of the wrist was then freed from the overlying skin and then the underlying median nerve with blunt dissection. This was transected longitudinally for about 3cm proximal to the wrist incision. The wound was then irrigated with easy flow of irrigant distally and proximally. The incision was closed with a single 4-0 Nylon suture. The wound was dressed with Xeroform, Gauze, Kerlix and Raymon. The tourniquet was deflated with the initial dressing and held with some pressure. Blood flow returned easily to all digits with capillary refill less than 2 seconds. The patient tolerated the procedure well and was returned to the Same Day Surgery area in a stable condition suffering no known complication. Date of Procedure: 04/26/24
[2024-04-26 07:53] VITALS: BP 148/78; PULSE 57; RESP 14; TEMP 36.6; O2SAT 100
== END 2024-04-26 08:21 | disposition home or self-care (01) ==
PROVIDERS: PCP Nurse Practitioner Adult Health; Visit Provider Student in an Organized Health Care Education/Training Program
PROC: 01N54ZZ Release Median Nerve, Percutaneous Endoscopic Approach (ICD-10-PCS; CPT 29848; principal; 2024-04-26 07:30)
DX: G56.01 Carpal tunnel syndrome, right upper limb (principal); R73.01 Impaired fasting glucose
CPT/HCPCS: 29848; J0690; J2004

== ENCOUNTER → 2024-05-06 10:47 | Outpatient (BNVA) | payer MEDICARE, BC, SELFPAY | PROVIDERS: PCP Nurse Practitioner Adult Health; Referring Provider Nurse Practitioner Adult Health | DX: Z47.89 Encounter for other orthopedic aftercare (principal); G56.01 Carpal tunnel syndrome, right upper limb | CPT/HCPCS: 99024 ==

== ENCOUNTER → 2024-06-06 14:19 | Outpatient (BNVA) | payer MEDICARE, BC, SELFPAY | PROVIDERS: PCP Nurse Practitioner Adult Health; Referring Provider Nurse Practitioner Adult Health; Visit Provider Student in an Organized Health Care Education/Training Program | DX: Z47.89 Encounter for other orthopedic aftercare (principal); G56.01 Carpal tunnel syndrome, right upper limb | CPT/HCPCS: 99024 ==

== ENCOUNTER 2025-01-10 00:56 | Outpatient (CLI) | payer MEDICARE, BC, SELFPAY ==
--- NOTE | 2025-01-10 07:30 | DI.US_ITS ---
Exam(s) US BREAST LT COMPLETE MG MAMMO DIAGNOSTIC BI EXAM: MG MAMMO DIAGNOSTIC BI AND COMPLETE LEFT BREAST ULTRASOUND CLINICAL HISTORY: new lt breast mass, n63.22. TECHNIQUE: Bilateral CC and MLO mammographic images were obtained with 3D tomosynthesis technique and utilizing computer aided detection (CAD). Also performed additional spot compression view of the left breast. COMPLETE LEFT BREAST ULTRASOUND performed including all 4 quadrants as well as the axillary region. She has had a prior remote (approximately 30 years ago) biopsy of the left breast performed at [facility], benign. COMPARISON: Prior mammograms were reviewed, dating back to 2016. Prior ultrasound exam of February 2021 and August 2020 were reviewed. This 79-year-old patient recently felt a small lump in her left breast. FINDINGS: DIAGNOSTIC BILATERAL MAMMOGRAM: There are no new right breast mammographic findings. In the left breast the previously described slightly lobulated partially calcified 11 x 9 mm nodule is again noted, present on prior mammograms dating back to at least 2015. It does not appear to have significantly increased in size. There is also a smaller history 12 o'clock position noncalcified nodule measuring 3-4 mm best seen on the MLO view. This is unchanged from recent mammograms There are no new spiculated masses and there are no malignant-appearing microcalcification groups in either breast. There is no new architectural distortion or skin thickening-retraction. We proceeded with ultrasound. COMPLETE LEFT BREAST ULTRASOUND: At the 12 o'clock position there is a 3 millimeter benign microcyst which corresponds to the benign-appearing nodule on the mammogram. At the 5 o'clock position there is another benign microcyst measuring 4 x 3 mm. At the 8 o'clock position there is a slightly lobulated 11 x 9 mm wider than taller solid nodule which contains a single hyperechoic focus corresponding to the single calcifications seen within this nodule on the mammogram. This wider than taller slightly lobulated nodule exhibits neutral through transmission and has appearance of a fibroadenoma. There are no other significant focal findings in all 4 quadrants of the left breast. Scanning of the left axilla reveals normal-appearing lymph nodes. IMPRESSION: 1. No radiographic evidence of malignancy in the right breast. 2. There is a partially calcified chronically present slightly lobulated nodule at the 7-8 o'clock position of the left breast which exactly corresponds to her palpable finding and corresponds to 1 underwent prior biopsy approximately 30 years ago at [facility]. 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 It is minimal increased in size from prior ultrasound examination of February 2021 ultrasound is most probably related to technical factors. The patient informs me that she has recently used a estrogen containing vaginal cream. Appropriate follow-up, as discussed by myself with the patient today, is repeat left breast ultrasound in 6 months to ensure stability of this finding which is most probably a benign fibroadenoma.. The patient was informed of the findings and follow-up recommendations by myself prior to leaving the department today. BI-RADS Category 3 - 6 month - Probably Benign Finding: Recommend follow-up mammography in 6 months Breast Density - Category B - There are scattered areas of fibroglandular density. Breast density Category C or D implies that the patient has dense breast tissue. Dense breast tissue can make it harder to find cancer on a mammogram. Dense breast tissue is also associated with an increased risk of breast cancer. This information about the result of the mammogram report was provided to the patient to raise their awareness. Use this report when you speak with the patient about their risks for breast cancer, which includes their family history. At that time, you may recommend additional screening tests (Ultrasound or MRI) as these tests may add significant information. A negative radiographic report should not delay biopsy if a dominant or clinically suspicious mass is present. Up to ten percent of cancers are not identified on mammography. A negative report may reinforce clinical impression. Adenosis and dense breasts may obscure an underlying neoplasm. False positive reports average 6 to 10%. Patient will receive a letter notifying them of these results.
== END 2025-01-10 01:16 ==
LOC: DI 00:56
PROVIDERS: PCP Nurse Practitioner Adult Health; Visit Provider Family Medicine
DX: N63.21 Unspecified lump in the left breast, upper outer quadrant (principal); N63.22 Unspecified lump in the left breast, upper inner quadrant; Z12.31 Encounter for screening mammogram for malignant neoplasm of breast
CPT/HCPCS: 76642; 77062; 77066; G0279